=== PATIENT | female | born 1950 | race Caucasian/White ===

== ENCOUNTER → 2024-07-02 08:40 | Outpatient (REF) | payer OTHER, SELFPAY ==
[2024-07-02 11:25] LABS: % Basophils 0.4 % (0-2); % Eosinophils 2.7 % (0-6); % Lymphocytes 44.7 % (20.5-51.1); % Monocytes 7.7 % (1.7-9.3); % Neutrophils 44.5 % (42.2-75.2); Absolute Eosinophils 0.2 10^3/uL (0-0.7); Absolute Lymphocytes 2.5 10^3/uL (1.2-3.4); Absolute Monocytes 0.4 10^3/uL (0.1-0.6); Absolute Neutrophils 2.5 10^3/uL (1.4-6.5); Hematocrit 37.1 % (37.0-47.0); Hemoglobin 12.9 g/dL (12.0-16.0); Mean Corp Hgb Conc. 34.8 g/dL (33.0-37.0); Mean Corpuscular Hgb 33.5 pg (27.0-31.0); Mean Corpuscular Volume 96.4 fL (81.0-99.0); Mean Platelet Volume 8.7 fL (7.4-10.4); Nucleated Red Blood Cells % 0 %; Platelet Count 272 10^3/uL (130-400); Red Blood Cell Count 3.85 10^6/uL (4.20-5.40); Red Cell Dist. Width 12.5 % (11.5-14.5); White Blood Cell Count 5.6 10^3/uL (4.8-10.8)
[2024-07-02 11:48] LABS: ALT (SGPT) 15 U/L (0-35); AST (SGOT) 23 U/L (14-36); Albumin 4.1 g/dl (3.5-5.0); Alkaline Phosphatase 58 U/L (38-126); Blood Urea Nitrogen 19 mg/dl (7-17); Calcium 9.5 mg/dl (8.4-10.2); Carbon Dioxide 27 mmol/L (22-30); Chloride 104 mmol/L (98-107); Glucose 95 mg/dl (70-99); HDL Cholesterol 59 mg/dl; LDL Cholesterol, Calculated 102 mg/dl; Potassium 4.5 mmol/L (3.5-5.1); Sodium 141 mmol/L (135-145); Total Bilirubin 0.9 mg/dl (0.2-1.3); Total Cholesterol 178 mg/dl (50-199); Total Protein 6.5 g/dl (6.3-8.2); Triglyceride 85 mg/dl (10-149); Very Low Density Lipoprotein 17 mg/dl (0-30); eGFR > 60.00
[2024-07-02 12:02] LABS: Vitamin D, 25-OH*** 57.8 ng/mL (30-80)
== END ==
LOC: HWLAB 08:40
PROVIDERS: ATTENDING PHYSICIAN Internal Medicine
DX: I10 Essential (primary) hypertension (principal); E78.00 Pure hypercholesterolemia, unspecified; E55.9 Vitamin D deficiency, unspecified
CPT/HCPCS: 36415; 80053; 80061; 82306; 85025

== ENCOUNTER → 2024-12-16 13:58 | Outpatient (REF) | payer OTHER, SELFPAY | LOC: HWWDC 13:58 | PROVIDERS: ATTENDING PHYSICIAN Obstetrics & Gynecology Gynecology; FAMILY PHYSICIAN Internal Medicine | DX: Z12.31 Encounter for screening mammogram for malignant neoplasm of breast (principal) | CPT/HCPCS: 77063; 77067 ==

== ENCOUNTER 2025-05-10 05:48 | Day surgery (SDC) | payer OTHER, SELFPAY ==
[2025-04-20 11:37] LABS: Hematocrit 37.8 % (37.0-47.0); Hemoglobin 12.7 g/dL (12.0-16.0); Mean Corp Hgb Conc. 33.6 g/dL (33.0-37.0); Mean Corpuscular Hgb 32.3 pg (27.0-31.0); Mean Corpuscular Volume 96.2 fL (81.0-99.0); Mean Platelet Volume 8.9 fL (7.4-10.4); Platelet Count 309 10^3/uL (130-400); Red Blood Cell Count 3.93 10^6/uL (4.20-5.40); Red Cell Dist. Width 12.4 % (11.5-14.5); White Blood Cell Count 6.7 10^3/uL (4.8-10.8)
[2025-04-20 11:40] LABS: ALT (SGPT) 20 U/L (0-35); AST (SGOT) 21 U/L (14-36); Albumin 4.4 g/dl (3.5-5.0); Alkaline Phosphatase 56 U/L (38-126); Blood Urea Nitrogen 18 mg/dl (7-17); Calcium 9.4 mg/dl (8.4-10.2); Carbon Dioxide 25 mmol/L (22-30); Chloride 105 mmol/L (98-107); Glucose 94 mg/dl (70-99); Potassium 4.1 mmol/L (3.5-5.1); Sodium 137 mmol/L (135-145); eGFR > 60.00
[2025-04-20 11:43] LABS: Glycohemoglobin (HgbA1c) 5.7 % (4.0-5.6)
[2025-04-20 14:10] VITALS: BMI 25.1
[2025-04-20 14:17] VITALS: BMI 25.1
--- NOTE | 2025-04-27 13:58 | CM ---
CM left message and reviewed chart.
--- NOTE | 2025-04-27 15:56 | VNURNOTE ---
Patient is scheduled for an elective R TKA on 05/10 - she is a same day patient with Dr Holden. Spoke with patient prior to surgery. Introduced role of [facility] Liaison. Patient reports that she lives with her spouse in a MULTI story home.
There are 1 steps to enter and a flight of steps to the second floor.
There is a master bed room and bath on the entry level buyer. She has a cane and rolling walker.
PCP is Dr Ulloa
Discussed [facility] joint protocol and post surgical plans.
Reviewed that she will have VN services initially and will then start outpatient PT.
Patient selects [facility] for home care needs and will go to outpatient PT on Rd. Scheduled for 05/12. Patient is trying to reschedule start of outpt PT to 05/13. She will know closer to surgery date.
Patient is in agreement with plan and stated that her spouse will be home with her. Advised to bring RW with her day of surgery. Referral placed in [facility].
Plan: [facility] per [facility] joint protocol 05/10 then outpt PT on May 12 or - TBD
--- NOTE | 2025-04-28 11:55 | CM ---
CM reviewed medical records. CM spoke with patient via live telephone. Patient lives independently with . Patient does not have a history of home care or SNF. Patient will be getting a walker and gel ice pack from [facility]. Patient is active
with her PCP. Patient has medication coverage.
PLAN: Home with [facility], [facility]>
[2025-05-10] VITALS (13 sets, daily range): BP systolic 92–146; BP diastolic 67–97; PULSE 95; O2SAT 100; BMI 25.1
[2025-05-10] MEDS: TYLENOL 650 MG PO (06:29)
[2025-05-10] MEDS: NORMOSOL-R/PLASMALYTE-A 1000 IV (06:29)
[2025-05-10] MEDS: CELEBREX 200 MG PO (06:29)
[2025-05-10] MEDS: ANCEF 5 IV (11:16)
--- NOTE | 2025-05-10 12:20 | PTCARENOTE ---
Patient asking for plain Tylenol and did not want a dose of Oxycodone prior to therapy or discharge. Patient urged to take the Oxycodone but she did not want it. Tylenol given at 1225.
[2025-05-10] MEDS: TYLENOL 1000 MG PO (12:22)
--- NOTE | 2025-05-10 12:28 | PTCARENOTE ---
Patient felt as if her blood sugar was low. Patient given some juice and cookies. (Patient is not diabetic) Patient states that sometimes at home she feels hypoglycemia. Patient requesting her blood sugar to be checked and it was 192. Will monitor
patient.
[2025-05-10 12:32] LABS: Glucose - Point of Care 192 mg/dl (70-99)
--- NOTE | 2025-05-10 13:06 | SUR.OPER ---
Patient completed therapy and passed but felt whoozy and lightheaded. VS stable and BP 143/92. Patient staying to rest for an hour and then reevaluate. Will monitor patient. Shea Mcgovern and team made aware.
--- NOTE | 2025-05-10 14:11 | SUR.OPER ---
Patient felt fine after getting up and ambulating after she rested for awhile. Patient ambulated all around the unit and felt fine and ready for discharge. Will monitor patient.
== END 2025-05-10 13:59 | disposition home health service (06) ==
LOC: SDS 05:48
PROVIDERS: ATTENDING PHYSICIAN Specialist; FAMILY PHYSICIAN Internal Medicine; OTHER PHYSICIAN Physician Assistant
DX: M17.11 Unilateral primary osteoarthritis, right knee (principal)
CPT/HCPCS: 27447; 36415; 73560; 80053; 82962; 83036; 85027; 87070; 93005; 97162; 97530; C1713; C1776

== ENCOUNTER → 2025-06-15 09:57 | Outpatient (REF) | payer OTHER, SELFPAY | LOC: HWRAD 09:57 | PROVIDERS: ATTENDING PHYSICIAN Obstetrics & Gynecology Gynecology; FAMILY PHYSICIAN Internal Medicine | DX: M81.0 Age-related osteoporosis without current pathological fracture (principal) | CPT/HCPCS: 77080 ==